=== PATIENT | male | born 1960 | race Caucasian/White ===

== ENCOUNTER 2018-10-23 00:10 | Inpatient (IN) ==
[2018-10-23] MEDS ORDERED: Ketorolac 30 MG/ML VIAL IVP ONE (00:28)
[2018-10-23] MEDS ORDERED: *HR* HYDROmorphone (PF) 1 MG/ML SYRINGE IVP ONE (00:29)
[2018-10-23] MEDS ORDERED: 0.9 % Sodium Chloride w KCl 40 MEQ/1,000 ML MLS IVC SCH (00:30)
[2018-10-23] MEDS ORDERED: Naloxone 0.4 MG/ML INJ IVP PRN (00:33)
--- NOTE | 2018-10-23 00:46 | Internal Med History&Physical ---
Date of Encounter: 10/23/18 Time of Encounter: 00:45 Internal Medicine - H&P: HPI Chief complaint: abdominal pain Admitted From: Hospital to Hospital Transfer Plans for Post Hospital Care: Home History of present illness: Ignacio Parker is a 58-year-old obese man with hypertension, hyperlipidemia and coronary artery disease with stents who went to [facility] emergency room after developing intense abdominal pain and distention right after dinner. He localizes the pain to his epigastrium and says it radiates laterally to both sides going into his back accompanied by nausea and profuse vomiting. Over the re he was found to have a lipase greater than [address] scan findings correlating with acute uncomplicated pancreatitis. He is sent here for further care. He denies alcohol and illicit drug use. Vitals: Reviewed General: Obese white male lying in bed in notable discomfort. Skin: Warm and dry. HEENT: Moist mucous membranes. No conjunctivae pallor. Neck: No lymphadenopathy. No JVD. No carotid bruits. No palpable thyroid. Chest: Normal thoracic expansion. Normal breath sounds. Clear to auscultation. Heart: Normal S1 & S2; rhythmic. No rubs or murmurs. Abdomen: Distended, soft and mildly tender to palpation in the epigastrium. No peritoneal reaction. Extremities: No clubbing, cyanosis or edema. No calf tenderness. Normal distal pulses. Neurological: Awake, alert and oriented to person, place and time. No focal deficits. Psych: Affect appropriate. Assessment/Plan 1. Acute uncomplicated pancreatitis: No clinical jaundice or other signs of biliary disease. CT showed no ductal dilation and his bilirubin is within normal limits. He has a slight elevation in AST which may be related to hepatosteatosis. Will check a lipid panel to assess his triglycerides. If alcohol and biliary disease are not etiologies, it is possible to consider drug- induced or idiopathic? Unclear. Will keep NPO, aggressive fluid resuscitation, check and supplement electrolytes, advance diet as tolerated. 2. CAD: Continue antiplatelet therapy. 3. HLD: On statin. 4. HTN: Will resume home medications once reconciled. 5. Obesity: Counseled and educated on therapeutic lifestyle changes for weight loss as it will be of benefit in controlling comorbidities. 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 Past Med Surg Social Fam HX - Past Medical History Medical history: hypertension, kidney stones, myocardial infarction Additional medical history: Gout Psychiatric history: no psych history - Past Surgical History Surgical History: other - Social History Smoking Status: Never smoker Smokeless Tobacco Status: No Alcohol use: none Drug use: none Internal Medicine - H&P: Meds Lisinopril [Zestril] 20 mg PO DAILY 03/22/15 [History] Allopurinol [Zyloprim 100 MG] 100 mg PO DAILY 10/22/18 [History] Aspirin [Lo-Dose Aspirin EC] 81 mg PO DAILY 10/22/18 [History] Atorvastatin [Lipitor] 80 mg PO HS 10/22/18 [History] Metoprolol [Lopressor] 50 mg PO DAILY 10/22/18 [History] Tamsulosin HCl [Flomax] 0.4 mg PO HS 10/22/18 [History] hydroCHLOROthiazide [Hydrochlorothiazide] 25 mg PO DAILY 10/22/18 [History] Allergy/AdvReac Type Severity Reaction Status Date / Time Penicillins Allergy Hives Verified 10/22/18 19:33 All Systems PM: A 10-system review of systems was performed and is negative for pertinent findings except as documented above in the HPI. Family history reviewed and found non-contributory. - Constitutional Exam: . - Time Spent With Patient Total time spent is greater than 50% in coordination of care (as documented) at patient's floor/unit and/or counseling patient: Greater than 35 minutes
[2018-10-23] MEDS: OXYCODONE Oral CONC 10 MG/0.5 ML ORAL.SYG SL PRN ×5 (03:38→23:24)
[2018-10-23] MEDS ORDERED: Ondansetron 4 MG/2 ML VIAL IVP PRN (04:41)
[2018-10-23] MEDS ORDERED: Ringers Solution, Lactated 1,000 ML IVC SCH (05:00)
[2018-10-23 05:33] LABS: Albumin/Globulin Ratio 1.4 (1.1-2.2); Bilirubin,Direct 0.2 mg/dL (0.0-0.2); Bilirubin,Indirect 0.5 mg/dL (0.0-1.2); Bilirubin,Total 0.7 mg/dL (0.3-1.0); Chol/HDL Ratio 3.7 (0-4.9); Globulin 2.8 g/dL (2.4-3.5); Total Protein 6.8 g/dL (6.4-8.9)
[2018-10-23 05:35] LABS: BUN/Creatinine Ratio 17 (6-26); Blood Urea Nitrogen 24 mg/dL (6-20); Calcium 9.5 mg/dL (8.6-10.3); Carbon Dioxide 25 mEq/L (23-29); Chloride 105 mEq/L (98-107); Glucose 198 mg/dL (70-105); Magnesium 1.8 mg/dL (1.6-2.6); Osmolality,Calculated 304 (280-300); Potassium 4.7 mEq/L (3.5-5.1); Sodium 142 mEq/L (136-145); eGFR For African Americans > 60 (> 60); eGFR For Non-African Americans 53 (> 60)
[2018-10-23] MEDS: *HR* Heparin 5,000 UNIT/ML VIAL SQ SCH ×2 (05:57→17:52)
[2018-10-23] MEDS: *HR* Nalbuphine 10 MG/ML AMPUL IV PRN (06:24)
[2018-10-23] MEDS ORDERED: *HR* HYDROmorphone 2 MG/ML SYRINGE IVP ONE (09:30)
[2018-10-23] MEDS ORDERED: *HR* HYDROmorphone (PF) 1 MG/ML SYRINGE IVP PRN (09:31)
[2018-10-23] MEDS ORDERED: Sennosides 8.6 MG TABLET PO PRN (09:33)
--- NOTE | 2018-10-23 09:38 | Event Note ---
Date of Encounter: 10/23/18 Time of Encounter: 09:34 Patient was admitted earlier today for acute pancreatitis lipase >1800, CT scan showed uncomplicated pnacreatitis. He is complaining abdominal pain bandlike 10 out of 10 nothing is working for him he has severe nausea and abdominal tenderness. I discussed was pain management will start IV Dilaudid at this point he is nothing by mouth unable to keep anything down. 1. Acute uncomplicated pancreatitis: No clinical jaundice or other signs of biliary disease. CT showed no ductal dilation and his bilirubin is within normal limits. He has a slight elevation in AST which may be related to hepatosteatosis. IVF at 200 ml, pain control with IV dilaudid 2. CAD: Continue antiplatelet therapy. 3. HLD: On statin. 4. HTN: Will resume home medications metoprolol, lisinopril 5. Morbid Obesity: Counseled and educated on therapeutic lifestyle changes for weight loss as it will be of benefit in controlling comorbidities. 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 6. ARF, on IVF, follow up lab Am.
[2018-10-23] MEDS ORDERED: *HR* FentaNYL (PF) 100 MCG/2 ML VIAL IVP PRN (10:49)
[2018-10-23] MEDS: Aspirin Enteric Coated 81 MG Tablet PO SCH (11:30)
[2018-10-23] MEDS: Lisinopril 20 MG TABLET PO SCH (11:30)
[2018-10-23] MEDS: Metoprolol XL (24 HR) Succ 50 MG TAB.ER.24H PO SCH (11:30)
[2018-10-23] MEDS: *HR* FentaNYL (PF) 100 MCG/2 ML VIAL IVP PRN ×2 (15:30→19:54)
[2018-10-24] MEDS: *HR* FentaNYL (PF) 100 MCG/2 ML VIAL IVP PRN (03:43)
[2018-10-24] MEDS: *HR* Heparin 5,000 UNIT/ML VIAL SQ SCH ×2 (03:53→17:43)
[2018-10-24] MEDS: OXYCODONE Oral CONC 10 MG/0.5 ML ORAL.SYG SL PRN ×3 (06:18→20:04)
[2018-10-24 09:08] LABS: Basophils % 0.2 %; Hematocrit 52.4 % (37.5-50.1); Hemoglobin 16.5 g/dL (12.9-16.9); Immature Granulocytes % 0.6 % (0-4); Lymphocytes # 1.6 K/mcL (0.6-4.6); Lymphocytes % 6.7 %; Mean Corpuscular HGB Conc 31.5 g/dL (31.6-35.5); Mean Corpuscular Hemoglobin 28.4 pg (28.0-33.3); Mean Platelet Volume 10.8 fL (9.4-12.4); Monocytes # 1.7 K/mcL (0.0-1.3); Monocytes % 7.4 %; Neutrophils # 19.9 K/mcL (1.6-8.9); Platelet Count 243 K/mcL (140-400); Red Blood Count 5.82 M/mcL (4.19-5.50); Red Cell Distribution Width 14.5 % (11.5-14.5); Segmented Neutrophils % 85.1 %; White Blood Count 23.4 K/mcL (4.3-11.1)
[2018-10-24 09:09] LABS: Basophils # 0.1 K/mcL (0.0-0.2)
[2018-10-24] MEDS: Aspirin Enteric Coated 81 MG Tablet PO SCH (09:19)
[2018-10-24] MEDS: Metoprolol XL (24 HR) Succ 50 MG TAB.ER.24H PO SCH (09:19)
[2018-10-24] MEDS: Lisinopril 20 MG TABLET PO SCH (09:19)
[2018-10-24 09:41] LABS: Albumin 3.8 g/dL (3.5-5.7); Albumin/Globulin Ratio 1.4 (1.1-2.2); Bilirubin,Direct 0.6 mg/dL (0.0-0.2); Bilirubin,Indirect 1.4 mg/dL (0.0-1.2); Chol/HDL Ratio 2.8 (0-4.9); Globulin 2.8 g/dL (2.4-3.5); Magnesium 1.9 mg/dL (1.6-2.6); Potassium 4.5 mEq/L (3.5-5.1); Total Protein 6.6 g/dL (6.4-8.9)
--- NOTE | 2018-10-24 11:13 | Internal Med Progress Note ---
Hospitalist Progress Note - Encounter Date of Encounter: 10/24/18 Time of Encounter: 11:08 - Subjective Interval History: Patient is doing much better, pain improved down to 5 out of 10, denies nausea vomiting. Blood pressure also improved. He is tolerating to ice chips will keep nothing by mouth for another day. - Exam Vitals: Temp Pulse Resp BP Pulse Ox 99.4 F 115 16 133/90 90 10/24/18 07:53 10/24/18 07:53 10/24/18 07:53 10/24/18 07:53 10/24/18 07:53 Exam: CONSTITUTIONAL: patient appears as an age appropriate male in no acute distress. EYES Clear sclerae, bilateral pupils are equal, reactive to light. EMOI. RESPIRATORY: No accessory muscle use, bilateral clear to auscultation, no wheezing, no crackles/rales. CARDIOVASCULAR: Regular heart rate, normal S1 and S2, no murmurs GASTROINTESTINAL: bowel sounds present, soft, mild tenderness. MUSCULOSKELETAL: Joints in normal range of motion, no clubbing, no edema, no cyanosis. Bilateral peripheral pulses 2+. NEUROLOGIC: CN II to XII are grossly intact, no focal neurological deficit. DVT Prophylaxis: Heparin subcutaneous - Summary of Assessment and Plan Summary of Assessment and Plan: Patient was admitted on 10/23 for acute pancreatitis, lipase >1800, CT scan showed uncomplicated pnacreatitis. Patient is doing much better today, nausea vomiting resolved. Abdominal pain is 4out of 10, aching constant. He has no BM since admission. 1Acute uncomplicated pancreatitis: No clinical jaundice or other signs of biliary disease. CT showed no ductal dilation and his bilirubin is within normal limits. He has a slight elevation in AST which may be related to hepatosteatosis. lipase improved, but Cr and WBC elevated, will conitnue iVF at 200 ml, pain controleld with fentanyl and oxycodone 2.CAD: Continue antiplatelet therapy. 3.HLD: On statin. 4.HTN: conitnue home medications metoprolol, lisinopril 5Morbid Obesity: Counseled and educated on therapeutic lifestyle changes for weight loss as it will be of benefit in controlling comorbidities. Curam Developer evaluation advised. 6. ARF, on IVF, Cr is up, IVF was d/tomasz last night, will restart at 200 ml 7. leukocytosis, will Keep NPO, follow up Am If Lab wbc improves, may start clear tomorrow. - Time Spent with Patient Total time spent is greater than 50% in coordination of care (as documented) at patient's floor/unit and/or counseling patient: less than 15 minutes Plan of Care Discussed with: patient Internal Medicine: Result - Labs CBC & Chem 7: 10/24/18 08:37 10/24/18 08:37 Labs: Short CBC 10/24/18 Range/Units 08:37 WBC 23.4 H D (4.3-11.1) K/mcL Hgb 16.5 (12.9-16.9) g/dL Hct 52.4 H (37.5-50.1) % Plt Count 243 (140-400) K/mcL Neutrophils # 19.9 H (1.6-8.9) K/mcL BMP 10/24/18 08:37 Sodium 142 Potassium 4.5 Chloride 102 Carbon Dioxide 29 BUN 34 H Creatinine 1.46 H Glucose 135 H Calcium 9.0 Liver Function 10/24/18 Range/Units 08:37 Total Bilirubin 2.0 H (0.3-1.0) mg/dL Direct Bilirubin 0.6 H (0.0-0.2) mg/dL AST 44 H (13-39) Units/L ALT 62 H (7-52) Units/L Alkaline Phosphatase 78 (34-104) Units/L Albumin 3.8 (3.5-5.7) g/dL Consult Discharge Plan - Plan Referrals: NONE,PCP [Primary Care Provider] -
[2018-10-24] MEDS ORDERED: RINGERS LACTATED IVC SCH (11:15)
[2018-10-24] MEDS: Ringers Solution, Lactated 1,000 ML IVC SCH ×3 (15:42→21:06)
[2018-10-25] MEDS: OXYCODONE Oral CONC 10 MG/0.5 ML ORAL.SYG SL PRN ×3 (02:16→23:09)
[2018-10-25] MEDS: Ringers Solution, Lactated 1,000 ML IVC SCH ×2 (02:18→08:00)
[2018-10-25] MEDS: *HR* Heparin 5,000 UNIT/ML VIAL SQ SCH ×2 (05:45→18:04)
[2018-10-25 07:06] LABS: Basophils % 0.1 %; Hematocrit 43.6 % (37.5-50.1); Immature Granulocytes % 0.7 % (0-4); Lymphocytes # 1.1 K/mcL (0.6-4.6); Lymphocytes % 7.6 %; Mean Corpuscular HGB Conc 31.9 g/dL (31.6-35.5); Mean Corpuscular Hemoglobin 28.9 pg (28.0-33.3); Mean Corpuscular Volume 90.6 fL (83.0-100.0); Mean Platelet Volume 10.5 fL (9.4-12.4); Monocytes % 6.8 %; Platelet Count 161 K/mcL (140-400); Red Blood Count 4.81 M/mcL (4.19-5.50); Red Cell Distribution Width 14.4 % (11.5-14.5); Segmented Neutrophils % 84.8 %; White Blood Count 14.1 K/mcL (4.3-11.1)
[2018-10-25 07:10] LABS: Hemoglobin 13.9 g/dL (12.9-16.9)
[2018-10-25 07:25] LABS: Platelet Estimate Normal (Normal)
[2018-10-25 07:28] LABS: Alanine Aminotransferase 39 Units/L (7-52); Albumin 3.3 g/dL (3.5-5.7); Albumin/Globulin Ratio 1.3 (1.1-2.2); Alkaline Phosphatase 72 Units/L (34-104); Aspartate Amino Transferase 32 Units/L (13-39); BUN/Creatinine Ratio 27 (6-26); Bilirubin,Indirect 1.5 mg/dL (0.0-1.2); Bilirubin,Total 2.5 mg/dL (0.3-1.0); Blood Urea Nitrogen 36 mg/dL (6-20); Calcium 8.4 mg/dL (8.6-10.3); Carbon Dioxide 30 mEq/L (23-29); Chloride 98 mEq/L (98-107); Globulin 2.6 g/dL (2.4-3.5); Glucose 138 mg/dL (70-105); Lipase 285 Units/L (11-82); Osmolality,Calculated 297 (280-300); Potassium 3.8 mEq/L (3.5-5.1); Sodium 138 mEq/L (136-145); Total Protein 5.9 g/dL (6.4-8.9); eGFR For African Americans > 60 (> 60); eGFR For Non-African Americans 55 (> 60)
[2018-10-25] MEDS: Metoprolol XL (24 HR) Succ 50 MG TAB.ER.24H PO SCH (09:54)
[2018-10-25] MEDS: Lisinopril 20 MG TABLET PO SCH (09:54)
[2018-10-25] MEDS: Aspirin Enteric Coated 81 MG Tablet PO SCH (09:54)
[2018-10-25] MEDS ORDERED: Acetaminophen 325 MG TABLET PO PRN (10:36)
--- NOTE | 2018-10-25 14:13 | Internal Med Progress Note ---
Hospitalist Progress Note - Encounter Date of Encounter: 10/25/18 Time of Encounter: 14:11 - Subjective Interval History: Seen and examined at bedside. Patient is new to me, information obtained from chart review and patient report. Overall says he feels better still having some mild abdominal discomfort. Says abdomen is more distended and bloated than normal. at bedside and updated - Exam Vitals: Temp Pulse Resp BP Pulse Ox 98.9 F 109 18 155/90 91 10/25/18 11:29 10/25/18 11:29 10/25/18 11:29 10/25/18 11:29 10/25/18 11:29 Exam: CONSTITUTIONAL: patient appears as an age appropriate male in no acute distress. EYES Clear sclerae, bilateral pupils are equal, reactive to light. EMOI. RESPIRATORY: No accessory muscle use, bilateral clear to auscultation, no wheezing, no crackles/rales. CARDIOVASCULAR: Regular heart rate, normal S1 and S2, no murmurs GASTROINTESTINAL: bowel sounds hypoactive, soft, mild tenderness. MUSCULOSKELETAL: Joints in normal range of motion, no clubbing, no edema, no cyanosis. Bilateral peripheral pulses 2+. NEUROLOGIC: CN II to XII are grossly intact, no focal neurological deficit. - Assessment and Plan (1) Pancreatitis Current Visit: No Status: Acute Assessment and Plan: presented with ABD pain. ABD CT showed acute non-complicated pancreatitis. With mild ABV pain but overall improved. Advance diet to clear liquid. Stop IV fluids. Repeat ABD CT with abdominal distention (2) ERIN (acute kidney injury) Current Visit: Yes Status: Acute Assessment and Plan: Cr 1.3; baseline normal. Suspect prerenal with pancreatitis. Treated with IV fluids. Monitor repeat BMP (3) Leukocytosis Current Visit: Yes Status: Acute Assessment and Plan: WBC 23K. secondary to acute pancreatitis. Repeat to WBC trending down. (4) Elevated bilirubin Current Visit: Yes Status: Acute Assessment and Plan: in the setting of acute pancreatitis. Repeat ABD/pelvis CT pending (5) HTN (hypertension) Current Visit: Yes Status: Acute Assessment and Plan: per hx. Cont home BP medications. Monitor BP and titrate PRN - Time Spent with Patient Total time spent is greater than 50% in coordination of care (as documented) at patient's floor/unit and/or counseling patient: Internal Medicine: Result - Labs CBC & Chem 7: 10/25/18 06:33 10/25/18 06:33 Labs: Short CBC 10/25/18 Range/Units 06:33 WBC 14.1 H (4.3-11.1) K/mcL Hgb 13.9 D (12.9-16.9) g/dL Hct 43.6 (37.5-50.1) % Plt Count 161 (140-400) K/mcL Neutrophils # 12.0 H (1.6-8.9) K/mcL BMP 10/25/18 06:33 Sodium 138 Potassium 3.8 Chloride 98 Carbon Dioxide 30 H BUN 36 H Creatinine 1.34 H Glucose 138 H Calcium 8.4 L Liver Function 10/25/18 Range/Units 06:33 Total Bilirubin 2.5 H (0.3-1.0) mg/dL Direct Bilirubin 1.0 H (0.0-0.2) mg/dL AST 32 (13-39) Units/L ALT 39 (7-52) Units/L Alkaline Phosphatase 72 (34-104) Units/L Albumin 3.3 L (3.5-5.7) g/dL Consult Discharge Plan - Plan Referrals: NONE,PCP [Primary Care Provider] - (1) Pancreatitis Qualifiers: Chronicity: acute Pancreatitis type: unspecified pancreatitis type Acute pa ncreatitis complication: no infection or necrosis Qualified Code(s): K85.90 - Acute pancreatitis without necrosis or infection, unspecified
[2018-10-25] MEDS ORDERED: 0.9 % Sodium Chloride 1,000 ML ONE (18:59)
[2018-10-25] MEDS: 0.9 % Sodium Chloride 1,000 ML IVC SCH (19:12)
[2018-10-25] MEDS: *HR* Nalbuphine 10 MG/ML AMPUL IV PRN (20:05)
[2018-10-25 20:17] LABS: Hematocrit 41.6 % (37.5-50.1); Hemoglobin 13.5 g/dL (12.9-16.9)
[2018-10-26] MEDS: *HR* FentaNYL (PF) 100 MCG/2 ML VIAL IVP PRN ×3 (04:24→22:07)
[2018-10-26] MEDS: *HR* Heparin 5,000 UNIT/ML VIAL SQ SCH ×2 (05:14→14:51)
[2018-10-26] MEDS: 0.9 % Sodium Chloride 1,000 ML IVC SCH ×2 (09:06→22:11)
[2018-10-26] MEDS: Aspirin Enteric Coated 81 MG Tablet PO SCH (09:14)
[2018-10-26] MEDS: Metoprolol XL (24 HR) Succ 50 MG TAB.ER.24H PO SCH (09:14)
[2018-10-26] MEDS: Lisinopril 20 MG TABLET PO SCH (09:14)
[2018-10-26] MEDS: Levofloxacin 750 MG/150 ML 750 MG/150 ML BAG IVPB SCH (09:16)
[2018-10-26] MEDS: OXYCODONE Oral CONC 10 MG/0.5 ML ORAL.SYG SL PRN ×2 (09:22→16:53)
[2018-10-26 09:48] LABS: Hematocrit 41.2 % (37.5-50.1); Hemoglobin 13.3 g/dL (12.9-16.9); Mean Corpuscular HGB Conc 32.3 g/dL (31.6-35.5); Mean Corpuscular Hemoglobin 28.5 pg (28.0-33.3); Mean Corpuscular Volume 88.2 fL (83.0-100.0); Mean Platelet Volume 10.8 fL (9.4-12.4); Platelet Count 173 K/mcL (140-400); Red Blood Count 4.67 M/mcL (4.19-5.50); White Blood Count 10.1 K/mcL (4.3-11.1)
[2018-10-26 10:08] LABS: Alanine Aminotransferase 36 Units/L (7-52); Albumin 3.2 g/dL (3.5-5.7); Albumin/Globulin Ratio 1.1 (1.1-2.2); Alkaline Phosphatase 80 Units/L (34-104); Aspartate Amino Transferase 33 Units/L (13-39); BUN/Creatinine Ratio 22 (6-26); Bilirubin,Total 3.7 mg/dL (0.3-1.0); Blood Urea Nitrogen 24 mg/dL (6-20); Calcium 8.5 mg/dL (8.6-10.3); Carbon Dioxide 30 mEq/L (23-29); Chloride 100 mEq/L (98-107); Globulin 2.9 g/dL (2.4-3.5); Glucose 129 mg/dL (70-105); Osmolality,Calculated 292 (280-300); Potassium 3.5 mEq/L (3.5-5.1); Sodium 138 mEq/L (136-145); Total Protein 6.1 g/dL (6.4-8.9); eGFR For African Americans > 60 (> 60); eGFR For Non-African Americans > 60 (> 60)
--- NOTE | 2018-10-26 14:30 | AcuteCare Surgery Consult Note ---
Date of Encounter: 10/26/18 Time of Encounter: 14:26 Assessment and Plan (1) Pancreatitis Current Visit: Yes Status: Acute 58M with complications of cholelithiasis including gallstone pancreatitis progressing to hemorraghic pancreatitis as well as likely choledocholithiasis; HDS NPO IVF trend t bili GI consult for ERCP on 10/27 MRCP today to confirm obstruction, but will still likely need ERCP if T bili continues to remain elevated pain control per primary team will plan for surgical intervention after evaluation by GI and resolution of pain from pancreatitis Qualifiers: Chronicity: acute Pancreatitis type: biliary Acute pancreatitis complication: no infection or necrosis Qualified Code(s): K85.10 - Biliary acute pancreatitis without necrosis or infection History of Present Illness Consult date: 10/26/18 Reason for consult: abdominal pain History of present illness: 58M PMH significant for obesity, CAD/DC who presents with a diagnosis of acute pancreatitis. The patient states he experienced upper abdominal pain with radiation to the back. The pain was associated with nausea, no vomiting, but did report decrease PO tolerance. He has never had surgery in his abdomen before. No reports of fevers, chills, nor shortness of breath. A CT scan was obtained, which was reviewed and intepreted by me, which demonstrated fat stranding around the pancreas consistent with acute pancreatitis. His alan score on admission was 2, at 48hrs it was at 4. A repeat CT scan was obtained which demonstrated findings concerning for intraperitoneal bleeding/hemorrhagic pancreatitis (no obvious aneurysm was identified and patient is hemodynamically stable). His total bilirubin continues to increase, it was at 2.5 on 10/25 and now it is at 3.7. General surgery was consulted for management recommendations. Past Med Surg Social Fam HX - Past Medical History Medical history: hypertension, kidney stones, myocardial infarction Additional medical history: Gout Psychiatric history: no psych history - Past Surgical History Surgical History: other - Social History Smoking Status: Never smoker Smokeless Tobacco Status: No Alcohol use: none Drug use: none - Additional Family History Additional family history: non contributory Medications and Allergies Lisinopril [Zestril] 20 mg PO DAILY 03/22/15 [History] Allopurinol [Zyloprim 100 MG] 100 mg PO HS 10/22/18 [History] Aspirin [Lo-Dose Aspirin EC] 81 mg PO DAILY 10/22/18 [History] Atorvastatin [Lipitor] 80 mg PO HS 10/22/18 [History] Tamsulosin HCl [Flomax] 0.4 mg PO DAILY 10/22/18 [History] hydroCHLOROthiazide [Hydrochlorothiazide] 25 mg PO DAILY 10/22/18 [History] Metoprolol Succinate [Toprol Xl] 50 mg PO DAILY 10/23/18 [History] Allergy/AdvReac Type Severity Reaction Status Date / Time Penicillins Allergy Hives Verified 10/23/18 16:28 Review of Systems All systems PM: 12 point ROS negative besides HPI findings General Surgery Exam Initial Vital Signs Temp Pulse Resp BP Pulse Ox 97.4 F L 65 17 171/96 94 10/23/18 00:44 10/23/18 00:44 10/23/18 00:44 10/23/18 00:44 10/23/18 00:44 - General physical appearance no distress - Eyes PERRL, normal ocular movement - ENT normocephalic - Neck trachea midline, no lymphadectomy - Respiratory normal expansion, normal respiratory effort - Cardiovascular Cardiovascular exam: Present: RRR - Abdomen Abdomen general surgery: Present: soft, tender (non peritoneal; no evidence of jean's nor handley tavares's sign) - Integumentary Integumentary general surgery: Present: warm and dry, no abnormal pigmentation - Neurologic Present: CN 2-12 grossly intact - Musculoskeletal Present: normal posture - Psychiatric Psychiatric general surgery: Present: A&Ox3 Exam Initial Vital Signs Temp Pulse Resp BP Pulse Ox 97.4 F L 65 17 171/96 94 10/23/18 00:44 10/23/18 00:44 10/23/18 00:44 10/23/18 00:44 10/23/18 00:44 Results - Labs 10/26/18 09:13 10/26/18 09:13 Abnormal lab results WBC 14.1 K/mcL (4.3-11.1) H 10/25/18 06:33 RBC 5.82 M/mcL (4.19-5.50) H 10/24/18 08:37 Hct 52.4 % (37.5-50.1) H 10/24/18 08:37 MCHC 31.5 g/dL (31.6-35.5) L 10/24/18 08:37 12.0 K/mcL (1.6-8.9) H 10/25/18 06:33 1.7 K/mcL (0.0-1.3) H 10/24/18 08:37 Carbon Dioxide 30 mEq/L (23-29) H 10/26/18 09:13 BUN 24 mg/dL (6-20) H 10/26/18 09:13 1.34 mg/dL (0.70-1.30) H 10/25/18 06:33 Est GFR (Non-Af Amer) 55 (> 60) L 10/25/18 06:33 27 (6-26) H 10/25/18 06:33 Glucose 129 mg/dL (70-105) H 10/26/18 09:13 304 (280-300) H 10/24/18 08:37 Calcium 8.5 mg/dL (8.6-10.3) L 10/26/18 09:13 3.7 mg/dL (0.3-1.0) H 10/26/18 09:13 1.0 mg/dL (0.0-0.2) H 10/25/18 06:33 1.5 mg/dL (0.0-1.2) H 10/25/18 06:33 AST 44 Units/L (13-39) H 10/24/18 08:37 ALT 62 Units/L (7-52) H 10/24/18 08:37 6.1 g/dL (6.4-8.9) L 10/26/18 09:13 3.2 g/dL (3.5-5.7) L 10/26/18 09:13 35 mg/dL (40-59) L 10/23/18 04:38 285 Units/L (11-82) H 10/25/18 06:33 Diabetes panel 10/26/18 Range/Units 09:13 Sodium 138 (136-145) mEq/L Potassium 3.5 (3.5-5.1) mEq/L Chloride 100 (98-107) mEq/L Carbon Dioxide 30 H (23-29) mEq/L BUN 24 H (6-20) mg/dL Creatinine 1.09 (0.70-1.30) mg/dL Glucose 129 H (70-105) mg/dL Calcium 8.5 L (8.6-10.3) mg/dL AST 33 (13-39) Units/L ALT 36 (7-52) Units/L Alkaline Phosphatase 80 (34-104) Units/L Albumin 3.2 L (3.5-5.7) g/dL Calcium panel 10/26/18 Range/Units 09:13 Calcium 8.5 L (8.6-10.3) mg/dL Albumin 3.2 L (3.5-5.7) g/dL Pituitary panel 10/26/18 Range/Units 09:13 Sodium 138 (136-145) mEq/L Potassium 3.5 (3.5-5.1) mEq/L Chloride 100 (98-107) mEq/L Carbon Dioxide 30 H (23-29) mEq/L BUN 24 H (6-20) mg/dL Creatinine 1.09 (0.70-1.30) mg/dL Glucose 129 H (70-105) mg/dL Calcium 8.5 L (8.6-10.3) mg/dL Adrenal panel 10/26/18 Range/Units 09:13 Sodium 138 (136-145) mEq/L Potassium 3.5 (3.5-5.1) mEq/L Chloride 100 (98-107) mEq/L Carbon Dioxide 30 H (23-29) mEq/L BUN 24 H (6-20) mg/dL Creatinine 1.09 (0.70-1.30) mg/dL Glucose 129 H (70-105) mg/dL Calcium 8.5 L (8.6-10.3) mg/dL Total Bilirubin 3.7 H (0.3-1.0) mg/dL AST 33 (13-39) Units/L ALT 36 (7-52) Units/L Alkaline Phosphatase 80 (34-104) Units/L Albumin 3.2 L (3.5-5.7) g/dL All other labs normal. - Imaging CT scan - abdomen: report reviewed, image reviewed CT scan - pelvis: report reviewed, image reviewed Consult Discharge Plan - Plan Referrals: NONE,PCP [Primary Care Provider] -
--- NOTE | 2018-10-26 16:44 | Internal Med Progress Note ---
Hospitalist Progress Note - Encounter Date of Encounter: 10/26/18 Time of Encounter: 16:42 - Exam Vitals: Temp Pulse Resp BP Pulse Ox 98.5 F 95 20 146/89 95 10/26/18 15:31 10/26/18 15:31 10/26/18 15:31 10/26/18 15:31 10/26/18 15:31 Exam: CONSTITUTIONAL: patient appears as an age appropriate male in no acute distress. EYES Clear sclerae, bilateral pupils are equal, reactive to light. EMOI. RESPIRATORY: No accessory muscle use, bilateral clear to auscultation, no wheezing, no crackles/rales. CARDIOVASCULAR: Regular heart rate, normal S1 and S2, no murmurs GASTROINTESTINAL: bowel sounds hypoactive, firm, distended, mild tenderness. MUSCULOSKELETAL: Joints in normal range of motion, no clubbing, no edema, no cyanosis. Bilateral peripheral pulses 2+. NEUROLOGIC: CN II to XII are grossly intact, no focal neurological deficit. - Assessment and Plan (1) Pancreatitis Current Visit: Yes Status: Acute Assessment and Plan: presented with ABD pain. ABD CT showed acute non-complicated pancreatitis. Repeat ABD CT on 10/25/18 for persistent abdominal pain and distention showed hemorrhagic pancreatitis. Evaluated by Gen. surgery who noted cholelithiasis with gallstone pancreatitis progressing to hemorrhagic parotitis as well as likely choledocholithiasis. NPO, IVF. Trend Bilirubin. MRCP pending. Consult GI for ERCP. General surgery planing surgical intervention after evaluation by GI and resolution of pain from pancreatitis (2) Elevated bilirubin Current Visit: Yes Status: Acute Assessment and Plan: in the setting of acute pancreatitis. Trend bilirubin. Plan as noted above (3) Pneumonia Current Visit: Yes Status: Acute Assessment and Plan: Incidental finding. ABD/pelvis CT concerning for bilateral lobe pneumonia. Continue IV Levaquin. Urinary antigens pending (4) Pericardial effusion Current Visit: Yes Status: Acute Assessment and Plan: Incidental finding on ABD/pelvis CT. Echocardiogram showed small pericardial effusion without evidence of tamponade. Consult cardiology for further evaluation although do not suspect further workup would be indicated (5) ERIN (acute kidney injury) Current Visit: Yes Status: Acute Assessment and Plan: Cr 1.3; baseline normal. Suspect prerenal with pancreatitis. Treated with IV fluids. Monitor repeat BMP (6) Leukocytosis Current Visit: Yes Status: Acute Assessment and Plan: WBC 23K. secondary to acute pancreatitis. Repeat to WBC trending down. (7) HTN (hypertension) Current Visit: Yes Status: Acute Assessment and Plan: per hx. BP mildly elevated at times. Suspect component of pain may be contributing to elevated BP. Cont home BP medications. Monitor BP and titrate PRN - Time Spent with Patient Total time spent is greater than 50% in coordination of care (as documented) at patient's floor/unit and/or counseling patient: Internal Medicine: Result - Labs CBC & Chem 7: 10/26/18 09:13 10/26/18 09:13 Labs: Short CBC 10/25/18 10/26/18 Range/Units 19:23 09:13 WBC 10.1 (4.3-11.1) K/mcL Hgb 13.5 13.3 (12.9-16.9) g/dL Hct 41.6 41.2 (37.5-50.1) % Plt Count 173 (140-400) K/mcL BMP 10/26/18 09:13 Sodium 138 Potassium 3.5 Chloride 100 Carbon Dioxide 30 H BUN 24 H Creatinine 1.09 Glucose 129 H Calcium 8.5 L Liver Function 10/26/18 Range/Units 09:13 Total Bilirubin 3.7 H (0.3-1.0) mg/dL AST 33 (13-39) Units/L ALT 36 (7-52) Units/L Alkaline Phosphatase 80 (34-104) Units/L Albumin 3.2 L (3.5-5.7) g/dL - Impressions Impressions Abdomen/Pelvis CT 10/25/18 12:57 IMPRESSION: Redemonstration of acute pancreatitis. When compared to the previous exam, there is increased surrounding fat stranding, much of which appears hyperdense, with a more focal collection of hyperdense material seen superior to the pancreas. Findings are concerning for hemorrhagic pancreatitis. Small bilateral pleural effusions. Patchy consolidation within the lower lungs bilaterally, concerning for pneumonia versus atelectasis. Development of a small pericardial effusion. D/ / Kuldeep Barkley MD / Kuldeep Barkley MD Interpreting Provider: Kuldeep Barkley MD Echocardiogram 10/26/18 09:12 Impressions: LVEF 60%. Normal LV chamber size, wall thickness and function. Normal left ventricular diastolic function. Normal right ventricular structure and function. There is a small pericardial effusion present without echocardiographic evidence of tamponade Mild tricuspid regurgitation. Unable to estimate RVSP as subcostal images were not obtained. Left Ventricular Wall Motion: Rest Echo Findings All wall segments showed normal motion. Findings: Study Quality * Technically sub-optimal due to poor echocardiographic windows. ECG Findings * Sinus tachycardia. Left Ventricle * LVEF 60%. * Normal LV chamber size, wall thickness and function. * Normal left ventricular diastolic function. Right Ventricle * Normal right ventricular structure and function. Left Atrium * Normal left atrial size. Right Atrium * Normal right atrial size. Aortic Valve * Aortic valve not well visualized. * No aortic regurgitation. * No aortic stenosis. Mitral Valve * Normal mitral valve structure. * No mitral stenosis. * No mitral regurgitation. Tricuspid Valve * Tricuspid valve not well visualized. * No tricuspid stenosis. * No evidence of pulmonary hypertension. * Mild tricuspid regurgitation. Pulmonic Valve * Pulmonic valve is not well visualized. Aorta * Normally sized aortic root. Pericardium * There is a small pericardial effusion present without echocardiographic evidence of tamponade * There is no echocardiographic evidence of tamponade. Blood pressure at time of study was 146/84mmHg IVC * The IVC is not well evaluated. Pulmonary Artery * Pulmonary artery not well visualized. Consult Discharge Plan - Plan Referrals: NONE,PCP [Primary Care Provider] - ___ (1) Pancreatitis Qualifiers: Chronicity: acute Pancreatitis type: biliary Acute pancreatitis complication: no infection or necrosis Qualified Code(s): K85.10 - Biliary acute pancreatitis without necrosis or infection
[2018-10-27] MEDS: OXYCODONE Oral CONC 10 MG/0.5 ML ORAL.SYG SL PRN ×4 (02:22→21:05)
[2018-10-27] MEDS: *HR* Heparin 5,000 UNIT/ML VIAL SQ SCH ×2 (07:24→16:02)
[2018-10-27] MEDS: Levofloxacin 750 MG/150 ML 750 MG/150 ML BAG IVPB SCH (08:42)
[2018-10-27] MEDS ORDERED: 0.9 % Sodium Chloride 1,000 ML IVC SCH (09:06)
[2018-10-27] MEDS ORDERED: Meropenem 1,000 MG in 0.9 % Sodium Chloride Mini Bag 100 ML IVPB SCH (09:11)
--- NOTE | 2018-10-27 09:13 | Internal Med Progress Note ---
Hospitalist Progress Note - Encounter Date of Encounter: 10/27/18 Time of Encounter: 09:09 - Subjective Interval History: patient developed low grade fever, no lab was done today, pain is 7/10 with current pain regimen, denies nausea and vomiting. I called GI they was not called yesterday, no consult was placed, I called for stat consult, check stat Lab, and change levaquin to Meropenem discussed with patient and his - Exam Vitals: Temp Pulse Resp BP Pulse Ox 99.8 F H 105 17 155/91 90 10/27/18 07:31 10/27/18 07:31 10/27/18 07:31 10/27/18 07:31 10/27/18 07:31 Exam: CONSTITUTIONAL: patient appears as an age appropriate male in no acute distress. EYES Clear sclerae, bilateral pupils are equal, reactive to light. EMOI. RESPIRATORY: No accessory muscle use, bilateral clear to auscultation, no wheezing, no crackles/rales. CARDIOVASCULAR: Regular heart rate, normal S1 and S2, no murmurs GASTROINTESTINAL: bowel sounds hypoactive, firm, distended, mild tenderness. MUSCULOSKELETAL: Joints in normal range of motion, no clubbing, no edema, no cyanosis. Bilateral peripheral pulses 2+. NEUROLOGIC: CN II to XII are grossly intact, no focal neurological deficit. DVT Prophylaxis: Heparin subcutaneous - Summary of Assessment and Plan Summary of Assessment and Plan: Patient was admitted on 10/23 for acute pancreatitis, lipase >1800, CT ([facility]) scan showed uncomplicated pnacreatitis. Repeat CT on 10/25 showed necroltizing pancreatitis. Surgery was consulted, recommended ERCP, I called GI this morning for stat consult (1) necrotizing Pancreatitis from possible gall stone Current Visit: Yes Status: Acute Assessment and Plan: presented with ABD pain. ABD CT showed acute non-complicated pancreatitis. Repeat ABD CT on 10/25/18 for persistent abdominal pain and distention showed hemorrhagic pancreatitis. Evaluated by Gen. surgery who noted cholelithiasis with gallstone pancreatitis progressing to hemorrhagic pancreatitis as well as likely choledocholithiasis. NPO, IVF. Trend Bilirubin. MRCP showed Gallbladder sludge without obvious gallstones. No intra or extrahepatic biliary dilatation. No choledocholithiasis. Pancreatic edema with adjacent free fluid and inflammatory stranding, compatible with patient's known pancreatitis. Consult GI stat for ERCP. (2) Gallstone and possible obstructive jaundice with Elevated bilirubin, GI conuslt stat for ERCP Current Visit: Yes Status: Acute Assessment and Plan: in the setting of acute pancreatitis. Trend bilirubin. Plan as noted above (3) Pneumonia from CT scan, on meropenem Current Visit: Yes Status: Acute Assessment and Plan: Incidental finding. ABD/pelvis CT concerning for bilateral lobe pneumonia. Urinary antigens pending (4) Pericardial effusion likley from necrotizing pancreatitis Current Visit: Yes Status: Acute Assessment and Plan: Incidental finding on ABD/pelvis CT. Echocardiogram showed small pericardial effusion without evidence of tamponade. (5) ERIN (acute kidney injury), improved Current Visit: Yes Status: Acute Assessment and Plan: Cr 1.3; baseline normal. Suspect prerenal with pancreatitis. Treated with IV fluids. Monitor repeat BMP (6) Leukocytosis trending down Current Visit: Yes Status: Acute Assessment and Plan: WBC 23K. secondary to acute pancreatitis. Repeat to WBC trending down. (7) HTN (hypertension) resume home meds metoprolol, lisinopril (8) Morbid obesity with BMI 45 Current Visit: Yes Status: Acute - Time Spent with Patient Total time spent is greater than 50% in coordination of care (as documented) at patient's floor/unit and/or counseling patient: Greater than 35 minutes Plan of Care Discussed with: patient Internal Medicine: Result - Labs CBC & Chem 7: 10/26/18 09:13 10/26/18 09:13 Labs: Short CBC 10/26/18 Range/Units 09:13 WBC 10.1 (4.3-11.1) K/mcL Hgb 13.3 (12.9-16.9) g/dL Hct 41.2 (37.5-50.1) % Plt Count 173 (140-400) K/mcL BMP 10/26/18 09:13 Sodium 138 Potassium 3.5 Chloride 100 Carbon Dioxide 30 H BUN 24 H Creatinine 1.09 Glucose 129 H Calcium 8.5 L Liver Function 10/26/18 Range/Units 09:13 Total Bilirubin 3.7 H (0.3-1.0) mg/dL AST 33 (13-39) Units/L ALT 36 (7-52) Units/L Alkaline Phosphatase 80 (34-104) Units/L Albumin 3.2 L (3.5-5.7) g/dL - Impressions Impressions Echocardiogram 10/26/18 09:12 Impressions: LVEF 60%. Normal LV chamber size, wall thickness and function. Normal left ventricular diastolic function. Normal right ventricular structure and function. There is a small pericardial effusion present without echocardiographic evidence of tamponade Mild tricuspid regurgitation. Unable to estimate RVSP as subcostal images were not obtained. Left Ventricular Wall Motion: Rest Echo Findings All wall segments showed normal motion. Findings: Study Quality * Technically sub-optimal due to poor echocardiographic windows. ECG Findings * Sinus tachycardia. Left Ventricle * LVEF 60%. * Normal LV chamber size, wall thickness and function. * Normal left ventricular diastolic function. Right Ventricle * Normal right ventricular structure and function. Left Atrium * Normal left atrial size. Right Atrium * Normal right atrial size. Aortic Valve * Aortic valve not well visualized. * No aortic regurgitation. * No aortic stenosis. Mitral Valve * Normal mitral valve structure. * No mitral stenosis. * No mitral regurgitation. Tricuspid Valve * Tricuspid valve not well visualized. * No tricuspid stenosis. * No evidence of pulmonary hypertension. * Mild tricuspid regurgitation. Pulmonic Valve * Pulmonic valve is not well visualized. Aorta * Normally sized aortic root. Pericardium * There is a small pericardial effusion present without echocardiographic evidence of tamponade * There is no echocardiographic evidence of tamponade. Blood pressure at time of study was 146/84mmHg IVC * The IVC is not well evaluated. Pulmonary Artery * Pulmonary artery not well visualized. Abdomen MRI 10/26/18 10:42 IMPRESSION: 1. Motion limited. 2. Gallbladder sludge without obvious gallstones. No intra or extrahepatic biliary dilatation. No choledocholithiasis. 3. Pancreatic edema with adjacent free fluid and inflammatory stranding, compatible with patient's known pancreatitis. 4. Partial visualization of basilar opacities with small effusions. D/ / 10/26/2018 17:35:28 Erinn Castellanos MD / Kimmy Davies Interpreting Provider: Erinn Castellanos MD Consult Discharge Plan - Plan Referrals: NONE,PCP [Primary Care Provider] -
[2018-10-27] MEDS ORDERED: Metoprolol XL (24 HR) Succ 50 MG TAB.ER.24H PO SCH (09:15)
--- NOTE | 2018-10-27 09:24 | AcuteCareSurgery Progress Note ---
<Alysa Prabhakar P - Last Filed: 10/27/18 11:38> Date of Encounter: 10/27/18 Time of Encounter: 08:45 - Assessment and Plan (1) Pancreatitis Current Visit: Yes Status: Acute * 58 years old male admitted for developing intense abdominal pain and distention right after dinner,accompanied by nausea and profuse vomiting. He has had Serum lipase greater than [address] scan findings correlating with acute uncomplicated pancreatitis, * MRI abdomen showed : Gallbladder sludge without obvious gallstones. No intra or extrahepatic biliary dilatation. No choledocholithiasis.Pancreatic edema with adjacent free fluid and inflammatory stranding, compatible with patient's known pancreatitis * Patient is still having abdominal pain located in epigastrium and left hypochondrium, intensity of pain is less than before * White cell count trending down from 23.4-10.1, hemoglobin 13.3, BUN trending down to 24, creatinine normal, total bilirubin trending up 3.7 ,direct bilirubin trending up 1.0, AST ALT are within normal limit and alkaline phosp hatase normal, serum lipase trending down [phone] Plan : * Medical management,watch and wait * Advance ice chips to clear liquid * Gastroenterology consultation, decide for ERCP * trend labs including LFT * Adequate pain management * DVT and GI prophylaxis/ PPI * will plan for surgical intervention after evaluation by GI and resolution of pain from pancreatitis and We will wait till 6 week before doing surgical intervention. Qualifiers: Chronicity: acute Pancreatitis type: biliary Acute pancreatitis complication: no infection or necrosis Qualified Code(s): K85.10 - Biliary acute pancreatitis without necrosis or infection Subjective Patient reports: still having pain, flatus, bowel movement, afebrile Narrative: 58 years old male admitted with a diagnosis of acute pancreatitis. He has had upper abdominal pain radiating to back, nausea and decreased oral intolerance. A CT scan was obtained aED which demonstrated fat stranding around the pancreas consistent with acute pancreatitis. Latest MRI abdomen showed : Gallbladder sludge without obvious gallstones. No intra or extrahepatic biliary dilatation. No choledocholithiasis.Pancreatic edema with adjacent free fluid and inflammatory stranding, compatible with patient's known pancreatitis. Today is first post admission day. Patient stated that his pain is much less and gradually getting better. He was under conservative management with the nothing by mouth, wait & watch. He does not have any nausea vomiting, vital signs stable, he is afebrile for 24 hours. We have planned gastroenterology consultation and probably ERCP if needed.. We will plan further surgical intervention if needed after gastroenterology consultation. We will restart with ice chips and clear liquid diet, we will wait for 6 weeks before doing surgical intervention Objective Vital Signs - Last 8 Hours Temp Pulse Resp BP Pulse Ox 10/27/18 07:31 99.8 F H 105 17 155/91 90 10/27/18 03:48 99.3 F 104 17 167/90 92 Intake and Output 10/26/18 10/27/18 10/27/18 23:59 07:59 15:59 Intake Total 1000 / 2750 Output Total 650 / 650 Balance 1000 / 850 -650 / -650 Intake: IV Fluids 1000 / 2150 0.9 % Sodium Chloride 1,000 ML 1000 / 2000 @ 75 mls/hr IVC .[id number] [facility] Rx #:[id number] Oral 0 / 600 Output: Urine 650 / 650 Other: Meal NPO - General physical appearance well developed, no distress, moderate pain - Eyes PERRL, normal ocular movement - ENT normal mucosa, no congestion - Neck Neck exam: no bruits, trachea midline, no lymphadectomy, no venous distension - Respiratory normal expansion, normal respiratory effort, clear to percussion, clear to auscultation - Cardiovascular Cardiovascular exam: Present: RRR, regular rhythm, no murmurs/rubs/gallops - Abdomen Abdomen: Present: bowel sounds present, soft, distended, tender. Absent: guarding, rigid, surgical scars Abdominal Tenderness: epigastic, LUQ Hernia: none - Integumentary no rash - Neurologic CN 2-12 grossly intact, normal coordination - Musculoskeletal normal gait, normal posture - Psychiatric oriented to time, oriented to person, oriented to place, speech is normal - Labs 10/27/18 09:18 10/27/18 09:18 Diabetes panel 10/26/18 Range/Units 09:13 Sodium 138 (136-145) mEq/L Potassium 3.5 (3.5-5.1) mEq/L Chloride 100 (98-107) mEq/L Carbon Dioxide 30 H (23-29) mEq/L BUN 24 H (6-20) mg/dL Creatinine 1.09 (0.70-1.30) mg/dL Glucose 129 H (70-105) mg/dL Calcium 8.5 L (8.6-10.3) mg/dL AST 33 (13-39) Units/L ALT 36 (7-52) Units/L Alkaline Phosphatase 80 (34-104) Units/L Albumin 3.2 L (3.5-5.7) g/dL Calcium panel 10/26/18 Range/Units 09:13 Calcium 8.5 L (8.6-10.3) mg/dL Albumin 3.2 L (3.5-5.7) g/dL Pituitary panel 10/26/18 Range/Units 09:13 Sodium 138 (136-145) mEq/L Potassium 3.5 (3.5-5.1) mEq/L Chloride 100 (98-107) mEq/L Carbon Dioxide 30 H (23-29) mEq/L BUN 24 H (6-20) mg/dL Creatinine 1.09 (0.70-1.30) mg/dL Glucose 129 H (70-105) mg/dL Calcium 8.5 L (8.6-10.3) mg/dL Adrenal panel 10/26/18 Range/Units 09:13 Sodium 138 (136-145) mEq/L Potassium 3.5 (3.5-5.1) mEq/L Chloride 100 (98-107) mEq/L Carbon Dioxide 30 H (23-29) mEq/L BUN 24 H (6-20) mg/dL Creatinine 1.09 (0.70-1.30) mg/dL Glucose 129 H (70-105) mg/dL Calcium 8.5 L (8.6-10.3) mg/dL Total Bilirubin 3.7 H (0.3-1.0) mg/dL AST 33 (13-39) Units/L ALT 36 (7-52) Units/L Alkaline Phosphatase 80 (34-104) Units/L Albumin 3.2 L (3.5-5.7) g/dL - Imaging CT scan - abdomen: report reviewed Consult Discharge Plan - Plan Referrals: NONE,PCP [Primary Care Provider] - <Yony Mazariegos - Last Filed: 10/27/18 13:18> Date of Encounter: 10/27/18 Objective Vital Signs - Last 8 Hours Temp Pulse Resp BP Pulse Ox 10/27/18 11:10 98.1 F 109 17 168/90 94 06/10/19 07:31 99.8 F H 105 17 155/91 90 Intake and Output 10/26/18 10/27/18 10/27/18 23:59 07:59 15:59 Intake Total 1000 / 2750 380 / 380 Output Total 650 / 650 Balance 1000 / 850 -270 / -270 Intake: IV Fluids 1000 / 2150 0.9 % Sodium Chloride 1,000 ML 1000 / 2000 @ 75 mls/hr IVC .[id number] [facility] Rx #:[id number] Oral 0 / 600 380 / 380 Output: Urine 650 / 650 Other: Meal NPO - Labs 10/27/18 09:18 10/27/18 09:18 Diabetes panel 10/27/18 Range/Units 09:18 Sodium 137 (136-145) mEq/L Potassium 3.3 L (3.5-5.1) mEq/L Chloride 103 (98-107) mEq/L Carbon Dioxide 30 H (23-29) mEq/L BUN 24 H (6-20) mg/dL Creatinine 1.09 (0.70-1.30) mg/dL Glucose 125 H (70-105) mg/dL Calcium 8.3 L (8.6-10.3) mg/dL AST 40 H (13-39) Units/L ALT 37 (7-52) Units/L Alkaline Phosphatase 86 (34-104) Units/L Albumin 3.1 L (3.5-5.7) g/dL Calcium panel 10/27/18 Range/Units 09:18 Calcium 8.3 L (8.6-10.3) mg/dL Albumin 3.1 L (3.5-5.7) g/dL Pituitary panel 10/27/18 Range/Units 09:18 Sodium 137 (136-145) mEq/L Potassium 3.3 L (3.5-5.1) mEq/L Chloride 103 (98-107) mEq/L Carbon Dioxide 30 H (23-29) mEq/L BUN 24 H (6-20) mg/dL Creatinine 1.09 (0.70-1.30) mg/dL Glucose 125 H (70-105) mg/dL Calcium 8.3 L (8.6-10.3) mg/dL Adrenal panel 10/27/18 Range/Units 09:18 Sodium 137 (136-145) mEq/L Potassium 3.3 L (3.5-5.1) mEq/L Chloride 103 (98-107) mEq/L Carbon Dioxide 30 H (23-29) mEq/L BUN 24 H (6-20) mg/dL Creatinine 1.09 (0.70-1.30) mg/dL Glucose 125 H (70-105) mg/dL Calcium 8.3 L (8.6-10.3) mg/dL Total Bilirubin 2.6 H (0.3-1.0) mg/dL AST 40 H (13-39) Units/L ALT 37 (7-52) Units/L Alkaline Phosphatase 86 (34-104) Units/L Albumin 3.1 L (3.5-5.7) g/dL - Attending Attestation I examined this patient and my medical decision-making was reviewed with the Resident Physician. I agree with the documented findings, disposition and treatment plan as described except to the extent set forth below. The patient is seen and evaluated on morning rounds with the acute care surgery team and the resident. The patient has severe pancreatitis. The pancreatitis is resolving. Bilirubin was elevated yesterday and then back down today. Gastroenterology was consulted and they did not recommend ERCP. Plan on recovery from his pancreatitis with convalescent cholecystectomy. The patient has requested Dr. Jordyn Mazariegos MD FACS
[2018-10-27 09:39] LABS: Hematocrit 38.4 % (37.5-50.1); Hemoglobin 12.7 g/dL (12.9-16.9); Mean Corpuscular HGB Conc 33.1 g/dL (31.6-35.5); Mean Corpuscular Hemoglobin 29.3 pg (28.0-33.3); Mean Corpuscular Volume 88.7 fL (83.0-100.0); Mean Platelet Volume 10.2 fL (9.4-12.4); Platelet Count 188 K/mcL (140-400); Red Blood Count 4.33 M/mcL (4.19-5.50); Red Cell Distribution Width 14.1 % (11.5-14.5); White Blood Count 10.6 K/mcL (4.3-11.1)
--- NOTE | 2018-10-27 09:39 | Cardiology Consult Note ---
<Alma Delia Fierro - Last Filed: 10/27/18 09:43> Date of Encounter: 10/27/18 Time of Encounter: 09:00 Assessment and Plan (1) Pericardial effusion Current Visit: Yes Status: Acute Small pericardial effusion without tamponade on TTE. EF preserved. Patient admitted with acute pancreatitis, also with incidental finding of PNA. Recommend repeat limited echocardiogram in the outpatient setting in 4-6 weeks to re-evaluate effusion. Will coordinate appt. No further inpt testing recommended from CV standpoint. (2) CAD (coronary artery disease) Current Visit: Yes Status: Acute Hx of CAD s/p PCI to LAD and LCx in 2014. No chest pain or angina reported. Troponin negative. EF preserved per TTE. Continue asa, statin, and BB. Follow-up in the outpatient setting. Qualifiers: Coronary Disease-Associated Artery/Lesion type: [place] artery [place] vs. transplanted heart: [place] heart Associated angina: without angina Qualified Code(s): I25.10 - Atherosclerotic heart disease of [place] coronary artery without angina pectoris Discussion w patient/family: The assessment and plan as outlined above was discussed with the patient and/or family members who expressed understanding and agreement. All questions were answered. Thank you for involving us in the care of your patient. Please call with any questions. The patient will be discussed and reviewed with Dr. Fernández; changes to be made accordingly. History of Present Illness Consult date: 10/27/18 Requesting physician: Radha Conway Consult reason: Small pericardial effusion Chief complaint: Abdominal pain History of present illness: Mr. Parker is a 58 year old male with PMHx significant of CAD s/p PCI (LAD, LCx in 2014), HTN, HLD who presented to [facility] ED on 10/23/18 with complaints of epigastric discomfort. He was found to have acute pancreatitis and was transferred to [facility]. Additionally, he was found to have bilateral lower lobe PNA. Epigastric pain started after eating, pain/discomfort has been intermittent since admission. Plan for MRCP today and then outpatient lap rosibel. He denies chest pain/discomfort. No angina or dyspnea. TTE was obtained and demonstrated preserved LVEF with small pericardial effusion without tamponade which prompted Cardiology consult. Past Med Surg Social Fam HX - Past Medical History Medical history: hypertension, kidney stones, myocardial infarction Additional medical history: Gout Psychiatric history: no psych history - Past Surgical History Surgical History: other - Social History Smoking Status: Never smoker Smokeless Tobacco Status: No Alcohol use: none Drug use: none Medications and Allergies Lisinopril [Zestril] 20 mg PO DAILY 03/22/15 [History] Allopurinol [Zyloprim 100 MG] 100 mg PO HS 10/22/18 [History] Aspirin [Lo-Dose Aspirin EC] 81 mg PO DAILY 10/22/18 [History] Atorvastatin [Lipitor] 80 mg PO HS 10/22/18 [History] Tamsulosin HCl [Flomax] 0.4 mg PO DAILY 10/22/18 [History] hydroCHLOROthiazide [Hydrochlorothiazide] 25 mg PO DAILY 10/22/18 [History] Metoprolol Succinate [Toprol Xl] 50 mg PO DAILY 10/23/18 [History] 3 Allergy/AdvReac Type Severity Reaction Status Date / Time Penicillins Allergy Hives Verified 10/23/18 16:28 All Systems Review: The remainder of the systems were reviewed and are negative Physical Examination Vital Signs, Last 4 Hours Temp Pulse Resp BP Pulse Ox 10/27/18 07:31 99.8 F H 105 17 155/91 90 General: Conversant, No Apparent Distress HEENT: Atraumatic, Normocephaly, Mucus Membranes Moist Cardiac: Reg Rate and Rhythm, Normal S1 and S2 Lungs: Normal Breath Sounds Neuro: Alert and responsive Abdomen: Soft, Other (morbidly obese) Extremities: No Edema, Normal Pulses Results 10/27/18 09:18 10/26/18 09:13 Lab Results 10/26/18 10/26/18 09:13 09:13 WBC 10.1 Hgb 13.3 Hct 41.2 Plt Count 173 Sodium 138 Potassium 3.5 Chloride 100 Carbon Dioxide 30 H BUN 24 H Creatinine 1.09 Glucose 129 H Calcium 8.5 L Total Bilirubin 3.7 H AST 33 ALT 36 Alkaline Phosphatase 80 Active Medications Acetaminophen (Tylenol) 650 mg PO Q6HR PRN PRN Reason: mild pain/fever Stop: 04/26/19 10:37 Last Admin: 10/25/18 15:45 Dose: 650 mg Documented by: Allopurinol (Zyloprim) 100 mg PO DAILY [facility] Stop: 04/24/19 09:31 Last Admin: 10/26/18 09:14 Dose: 100 mg Documented by: Aspirin (Aspirin Ec) 81 mg PO DAILY [facility] Stop: 04/24/19 09:31 Last Admin: 10/26/18 09:14 Dose: 81 mg Documented by: Atorvastatin Calcium (Lipitor) 80 mg PO HS [facility] Stop: 04/24/19 21:01 Last Admin: 10/26/18 22:07 Dose: 80 mg Documented by: Docusate Sodium (Colace) 200 mg PO DAILY [facility]; Protocol Stop: 04/24/19 09:46 Last Admin: 10/26/18 09:14 Dose: 200 mg Documented by: Fentanyl Citrate (Fentanyl (Pf)) 100 mcg IVP Q3H PRN PRN Reason: See Comments Stop: 04/24/19 10:50 Last Admin: 10/26/18 22:07 Dose: 100 mcg Documented by: Heparin Sodium (Porcine) (Heparin) 5,000 unit SQ Q12HCO [facility] Stop: 04/24/19 06:01 Last Admin: 10/27/18 07:24 Dose: Not Given Documented by: Hydralazine HCl (Hydralazine) 10 mg IVP Q6HR PRN PRN Reason: Hypertension Stop: 04/24/19 19:57 Last Admin: 10/26/18 05:49 Dose: 10 mg Documented by: Sodium Chloride (0.9 % Sodium Chloride) 1,000 mls @ 125 mls/hr IVC .Q8H [facility] Stop: 04/28/19 09:07 Meropenem 1,000 mg/ Sodium (Chloride) 100 mls @ 200 mls/hr IVPB Q8HR [facility] Stop: 04/28/19 09:12 Lisinopril (Zestril) 20 mg PO DAILY [facility]; Protocol Stop: 04/24/19 09:31 Last Admin: 10/26/18 09:14 Dose: 20 mg Documented by: Metoprolol Succinate (Toprol Xl) 50 mg PO DAILY [facility] Stop: 04/24/19 10:01 Last Admin: 10/26/18 09:14 Dose: 50 mg Documented by: Naloxone HCl (Narcan) 0.4 mg IVP Q2MPRN PRN PRN Reason: SEE COMMENTS Stop: 04/24/19 00:34 Ondansetron HCl (Zofran) 4 mg IVP Q6H PRN; Protocol PRN Reason: Nausea And Vomiting Stop: 04/24/19 04:42 Last Admin: 10/23/18 05:43 Dose: 4 mg Documented by: Oxycodone HCl (Oxycodone Oral Conc) 15 mg SL Q4H PRN; Protocol PRN Reason: Severe Pain Stop: 04/24/19 00:34 Last Admin: 10/27/18 09:07 Dose: 15 mg Documented by: Senna (Senna) 17.2 mg PO HS PRN PRN Reason: Constipation Stop: 04/24/19 09:34 Tamsulosin HCl (Flomax) 0.4 mg PO HS [facility]; Protocol Stop: 04/24/19 21:01 Last Admin: 10/26/18 22:08 Dose: 0.4 mg Documented by: - Imaging and Cardiology Echo: report reviewed Other Results: pt. not on telemetry - EKG Interpretation EKG results cardiology: personally reviewed Consult Discharge Plan - Plan Referrals: NONE,PCP [Primary Care Provider] - <Efraín Fernández - Last Filed: 10/27/18 13:28> Date of Encounter: 10/27/18 - Attending Attestation Patient was seen and evaluated independently by me. Findings, assessment and plan were discussed at length with patient, questions answered. Agree with nurse practitioner's/resident's documentation. Addition as follows, 58 yoCM ho CAD SONIA-LAD and LCx 2014, HTN, HLD. P/w epigastric pain. Imp pancreatitis, PNA. Consulted for incidental pericardial effusion on TTE. No chest pain, palpitation, dyspnea. ECG no ischemic changes. TTE reviewed trace-small pericardial effusion w/o tamponade, mild TR, otherwise wnl. BP fluctuation, CTA B/L, RR, no LE edema. A: Pericardial effusion, trace-small CAD, no angina Acute pancreatitis P: no further inpatient cardiac workup Cardiology clinic f/u Efraín Fernández MD, PhD Assessment and Plan Discussion w patient/family: The assessment and plan as outlined above was discussed with the patient and/or family members who expressed understanding and agreement. All questions were answered. Thank you for involving us in the care of your patient. Please call with any questions. History of Present Illness History of present illness: Mr. Parker is a 58 year old male All Systems Review: The remainder of the systems were reviewed and are negative Physical Examination Vital Signs, Last 4 Hours Temp Pulse Resp BP Pulse Ox 10/27/18 11:10 98.1 F 109 17 168/90 94 Results 10/27/18 09:18 10/27/18 09:18 Lab Results 10/27/18 10/27/18 09:18 09:18 WBC 10.6 Hgb 12.7 L Hct 38.4 Plt Count 188 Sodium 137 Potassium 3.3 L Chloride 103 Carbon Dioxide 30 H BUN 24 H Creatinine 1.09 Glucose 125 H Calcium 8.3 L Total Bilirubin 2.6 H AST 40 H ALT 37 Alkaline Phosphatase 86 Lipase 152 H
[2018-10-27 09:52] LABS: BUN/Creatinine Ratio 22 (6-26); Blood Urea Nitrogen 24 mg/dL (6-20); Carbon Dioxide 30 mEq/L (23-29); Chloride 103 mEq/L (98-107); Potassium 3.3 mEq/L (3.5-5.1); Sodium 137 mEq/L (136-145)
[2018-10-27 09:53] LABS: Alanine Aminotransferase 37 Units/L (7-52); Albumin 3.1 g/dL (3.5-5.7); Albumin/Globulin Ratio 1.1 (1.1-2.2); Alkaline Phosphatase 86 Units/L (34-104); Aspartate Amino Transferase 40 Units/L (13-39); Bilirubin,Direct 1.5 mg/dL (0.0-0.2); Bilirubin,Indirect 1.1 mg/dL (0.0-1.2); Bilirubin,Total 2.6 mg/dL (0.3-1.0); Calcium 8.3 mg/dL (8.6-10.3); Globulin 2.7 g/dL (2.4-3.5); Glucose 125 mg/dL (70-105); Lipase 152 Units/L (11-82); Osmolality,Calculated 290 (280-300); Total Protein 5.8 g/dL (6.4-8.9); eGFR For African Americans > 60 (> 60); eGFR For Non-African Americans > 60 (> 60)
[2018-10-27] MEDS: Metoprolol XL (24 HR) Succ 50 MG TAB.ER.24H PO SCH (10:45)
[2018-10-27] MEDS: Aspirin Enteric Coated 81 MG Tablet PO SCH (10:54)
[2018-10-27] MEDS: Lisinopril 20 MG TABLET PO SCH (10:54)
[2018-10-27] MEDS: 0.9 % Sodium Chloride 1,000 ML IVC SCH (11:07)
--- NOTE | 2018-10-27 13:15 | Gastroenterology Consult Note ---
<Rajan Kelley - Last Filed: 10/27/18 13:26> Date of Encounter: 10/27/18 Time of Encounter: 10:15 - Assessment and plan (1) Pancreatitis Current Visit: Yes Status: Acute Assessment and plan: CT A/P with acute pancreatitis, hyperdence collection concerning for hemorrhagic pancreatitis. MRCP with gallbladder sludge without obvious gallstones, no intra or extrahepatic biliary dilatation, no choledocholithiasis, pancreatic edema with adjacent free fluid and inflammatory stranding, compatible with patient's known pancreatitis. BISAP score 2 Continue IV fluids, pain control, and anti-emetics. Slowly advance diet as tolerated. Recommend cholecystectomy with intraoperative cholangiogram. No indication for ERCP as no biliary dilation. On admission TB 0.7, AST 96, ALT 107. TB peaked at 3.7 on 10/26. Today TB 2.6, AST 40, and ALT 37. - Time Spent With Patient Total time spent is greater than 50% in coordination of care (as documented) at patient's floor/unit and/or counseling patient: GI History of Present Illness - Data of Consult Patient: new to practice Consult date: 10/27/18 Requesting Physician: Gamaliel Barnes MD - Consult Narrative Reason for consult: Gallstone pancreatitis History of present illness: Mr. Parker is a 58 year old male Past Med Surg Social Fam HX - Past Medical History Medical history: hypertension, kidney stones, myocardial infarction Additional medical history: Gout Psychiatric history: no psych history - Past Surgical History Surgical History: other - Social History Smoking Status: Never smoker Smokeless Tobacco Status: No Alcohol use: none Drug use: none - Gastrointestinal Gastrointestinal: Present: as per HPI - Constitutional Constitutional: as per HPI - EENT Eyes: as per HPI Ears: Present: as per HPI Nose, mouth and throat: Present: as per HPI - Cardiovascular Cardiovascular ROS: Present: as per HPI - Respiratory Respiratory IM: Present: as per HPI - Genitourinary Genitourinary: Absent: change in color, Urinary frequency - Neurological ROS Neurological GI: Present: as per HPI - Hematologic/Lymphatic Hematologic/Lymphatic pediatric: Present: as per HPI - Musculoskeletal Musculoskeletal ROS GI: Present: as per HPI - Integumentary Integumentary GI: Present: as per HPI - Psychiatric ROS Psychiatric GI: Present: as per HPI - Endocrine Endocrine IM: Present: as per HPI - Constitutional Vitals: Temp Pulse Resp BP Pulse Ox 98.1 F 109 17 168/90 94 10/27/18 11:10 10/27/18 11:10 10/27/18 11:10 10/27/18 11:10 10/27/18 11:10 General appearance: Present: cooperative, A&O X 3, no acute distress, answers questions appropriately - Head Head exam: Present: atraumatic, normocephalic - Eye Eye exam: Present: normal appearance, sclera anicteric - ENT ENT exam: Present: mucous membranes dry - Neck Neck exam general surgery: Present: normal inspection, trachea midline - Respiratory Respiratory exam: Present: CTAB. Absent: rales, rhonchi - Cardiovascular Cardiovascular exam: Present: RRR, +S1, +S2 - GI/Abdominal GI/Abdominal exam: Present: soft, tenderness (RUQ, epigastric, LUQ), no peritoneal signs. Absent: distended, firm, guarding Additional comments: obese - Rectal Rectal exam: Present: deferred - Extremities Exam Extremities exam: Present: warm - Neurological Exam Neurological exam: Present: no focal deficits - Psychiatric Psychiatric exam: Present: normal affect, normal mood - Skin Skin exam: Present: dry, intact, normal color, warm Results - Labs CBC & Chem 7: 10/27/18 09:18 10/27/18 09:18 Labs: Last Result 10/27/18 09:18 Calcium 8.3 L Entire Visit 10/27/18 10/27/18 09:18 09:18 Hgb 12.7 L Hct 38.4 Total Bilirubin 2.6 H AST 40 H ALT 37 Lipase 152 H - Impressions Impressions Echocardiogram 10/26/18 09:12 Impressions: LVEF 60%. Normal LV chamber size, wall thickness and function. Normal left ventricular diastolic function. Normal right ventricular structure and function. There is a small pericardial effusion present without echocardiographic evidence of tamponade Mild tricuspid regurgitation. Unable to estimate RVSP as subcostal images were not obtained. Left Ventricular Wall Motion: Rest Echo Findings All wall segments showed normal motion. Findings: Study Quality * Technically sub-optimal due to poor echocardiographic windows. ECG Findings * Sinus tachycardia. Left Ventricle * LVEF 60%. * Normal LV chamber size, wall thickness and function. * Normal left ventricular diastolic function. Right Ventricle * Normal right ventricular structure and function. Left Atrium * Normal left atrial size. Right Atrium * Normal right atrial size. Aortic Valve * Aortic valve not well visualized. * No aortic regurgitation. * No aortic stenosis. Mitral Valve * Normal mitral valve structure. * No mitral stenosis. * No mitral regurgitation. Tricuspid Valve * Tricuspid valve not well visualized. * No tricuspid stenosis. * No evidence of pulmonary hypertension. * Mild tricuspid regurgitation. Pulmonic Valve * Pulmonic valve is not well visualized. Aorta * Normally sized aortic root. Pericardium * There is a small pericardial effusion present without echocardiographic evidence of tamponade * There is no echocardiographic evidence of tamponade. Blood pressure at time of study was 146/84mmHg IVC * The IVC is not well evaluated. Pulmonary Artery * Pulmonary artery not well visualized. Abdomen MRI 10/26/18 10:42 IMPRESSION: 1. Motion limited. 2. Gallbladder sludge without obvious gallstones. No intra or extrahepatic biliary dilatation. No choledocholithiasis. 3. Pancreatic edema with adjacent free fluid and inflammatory stranding, compatible with patient's known pancreatitis. 4. Partial visualization of basilar opacities with small effusions. D/ / 10/26/2018 17:35:28 Erinn Castellanos MD / Kimmy Davies Interpreting Provider: Erinn Castellanos MD Consult Discharge Plan - Plan Referrals: Shadia Delcid PACKER FUSER [Advanced Practice Nurse] - 11/03/18 3:00 pm (you will receive a new pt packet in the mail be sure to fill it all out and bring what is listed.) NONE,PCP [Primary Care Provider] - <Mikey Blue - Last Filed: 10/27/18 18:03> Date of Encounter: 10/27/18 Time of Encounter: 14:00 - Time Spent With Patient Total time spent is greater than 50% in coordination of care (as documented) at patient's floor/unit and/or counseling patient: GI History of Present Illness - Data of Consult Requesting Physician: Gamaliel Barnes MD - Consult Narrative History of present illness: Mr. Parker is a 58 year old male - Constitutional Vitals: Temp Pulse Resp BP Pulse Ox 99.2 F 106 17 150/89 92 10/27/18 16:46 10/27/18 16:46 10/27/18 16:46 10/27/18 16:46 10/27/18 16:46 Results - Labs CBC & Chem 7: 10/27/18 09:18 10/27/18 09:18 Labs: Last Result 10/27/18 09:18 Calcium 8.3 L Entire Visit 10/27/18 10/27/18 09:18 09:18 Hgb 12.7 L Hct 38.4 Total Bilirubin 2.6 H AST 40 H ALT 37 Lipase 152 H - Impressions Impressions Abdomen MRI 10/26/18 10:42 IMPRESSION: 1. Motion limited. 2. Gallbladder sludge without obvious gallstones. No intra or extrahepatic biliary dilatation. No choledocholithiasis. 3. Pancreatic edema with adjacent free fluid and inflammatory stranding, compatible with patient's known pancreatitis. 4. Partial visualization of basilar opacities with small effusions. D/ : / 10/26/2018 17:35:28 Erinn Castellanos MD / Kimmy Davies Interpreting Provider: Erinn Castellanos MD - Attending Attestation I have personally performed a face to face evaluation on this patient. I have reviewed and agree with the care plan. History and Exam by me shows: Pt seen. No active complaint . examination : has mild tenderness in the left upper abdomen. A: Patient acute pancreatitis with peripancreatic fluid collection. No biliary dilation. Recommendation: Pain control IV fluid no need for an ERCP. Recommend IOC at the time gallbladder surgery when patient have it done as an outpatient
[2018-10-27] MEDS: Cefepime HCl 1,000 MG in Water for inj. (sterile) 20 ML 10 ML IVP SCH (15:49)
[2018-10-27] MEDS: MetroNIDAZOLE 500 MG/100 ML 500 MG/100 ML BAG IVPB SCH (15:49)
[2018-10-28] MEDS: Cefepime HCl 1,000 MG in Water for inj. (sterile) 20 ML 10 ML IVP SCH ×2 (00:13→08:25)
[2018-10-28] MEDS: MetroNIDAZOLE 500 MG/100 ML 500 MG/100 ML BAG IVPB SCH ×4 (00:15→23:29)
[2018-10-28] MEDS: 0.9 % Sodium Chloride 1,000 ML IVC SCH ×2 (00:17→05:43)
[2018-10-28] MEDS: OXYCODONE Oral CONC 10 MG/0.5 ML ORAL.SYG SL PRN (02:25)
[2018-10-28] MEDS: *HR* Heparin 5,000 UNIT/ML VIAL SQ SCH ×2 (05:55→15:57)
[2018-10-28 06:45] LABS: Basophils % 0.2 %; Eosinophils # 0.2 K/mcL (0.0-0.6); Eosinophils % 1.5 %; Hematocrit 38.8 % (37.5-50.1); Hemoglobin 12.3 g/dL (12.9-16.9); Immature Granulocytes % 1.3 % (0-4); Lymphocytes # 0.9 K/mcL (0.6-4.6); Lymphocytes % 7.9 %; Mean Corpuscular HGB Conc 31.7 g/dL (31.6-35.5); Mean Corpuscular Hemoglobin 28.5 pg (28.0-33.3); Mean Corpuscular Volume 89.8 fL (83.0-100.0); Monocytes # 1.1 K/mcL (0.0-1.3); Monocytes % 9.8 %; Neutrophils # 8.8 K/mcL (1.6-8.9); Platelet Count 198 K/mcL (140-400); Red Blood Count 4.32 M/mcL (4.19-5.50); Red Cell Distribution Width 14.3 % (11.5-14.5); Segmented Neutrophils % 79.3 %; White Blood Count 11.1 K/mcL (4.3-11.1)
[2018-10-28 07:10] LABS: Alanine Aminotransferase 33 Units/L (7-52); Alkaline Phosphatase 95 Units/L (34-104); Aspartate Amino Transferase 47 Units/L (13-39); BUN/Creatinine Ratio 19 (6-26); Bilirubin,Direct 0.8 mg/dL (0.0-0.2); Bilirubin,Total 1.8 mg/dL (0.3-1.0); Blood Urea Nitrogen 19 mg/dL (6-20); Calcium 8.3 mg/dL (8.6-10.3); Carbon Dioxide 27 mEq/L (23-29); Chloride 101 mEq/L (98-107); Globulin 2.9 g/dL (2.4-3.5); Glucose 101 mg/dL (70-105); Lipase 192 Units/L (11-82); Magnesium 2.4 mg/dL (1.6-2.6); Osmolality,Calculated 284 (280-300); Potassium 3.4 mEq/L (3.5-5.1); Sodium 136 mEq/L (136-145); Total Protein 5.9 g/dL (6.4-8.9); eGFR For African Americans > 60 (> 60); eGFR For Non-African Americans > 60 (> 60)
[2018-10-28] MEDS: Lisinopril 20 MG TABLET PO SCH (08:26)
[2018-10-28] MEDS: Metoprolol XL (24 HR) Succ 50 MG TAB.ER.24H PO SCH (08:26)
[2018-10-28] MEDS: Aspirin Enteric Coated 81 MG Tablet PO SCH (08:26)
--- NOTE | 2018-10-28 08:57 | Event Note ---
Date of Encounter: 10/28/18 Time of Encounter: 08:56 Bilirubin continues to be downtrending. Patient states his abdominal pressure is improved in pain is only soreness. He is requested to follow-up with Dr. Cobb. An appointment has been made for 11/25/2017 at 0920 patient should follow a low fat diet until seen in follow-up. If he has return of his previous symptoms or worsening discomfort he should return to the emergency department.
[2018-10-28] MEDS ORDERED: Ringers Solution, Lactated 1,000 ML IVC SCH (10:00)
[2018-10-28] MEDS ORDERED: traMADol 50 MG TABLET PO PRN ×2 (10:28→10:52)
--- NOTE | 2018-10-28 10:32 | Internal Med Progress Note ---
Hospitalist Progress Note - Encounter Date of Encounter: 10/28/18 Time of Encounter: 10:30 - Subjective Interval History: I have seen and evaluated the patient at bedside. patient reported the abdominal pain/discomfort has resolved. reports not feeling as bloated as her was for the past couple of days, denies nausea or vomiting. denies chest pain or abdominal pain. - Exam Vitals: Temp Pulse Resp BP Pulse Ox 98.3 F 107 17 168/88 95 10/28/18 07:51 10/28/18 07:51 10/28/18 07:51 10/28/18 07:51 10/28/18 07:51 Exam: Vitals: Reviewed General: Alert and oriented x4. In no distress Skin: Normal color, no rash, no lesions. HEENT: EOM, pupils equal, round and reactive. Cardiovascular: RRR, normal S1 & S2, no rubs, murmurs or gallops. Lungs: CTA b/l, no wheezes or crackles. Abdomen: Obese, soft, non-tender, no rigidity. Extremities: No edema. Neurological: Normal cognition and motor skills. Rest of the physical exam is non contributory - Assessment and Plan (1) Pancreatitis Current Visit: Yes Status: Acute Assessment and Plan: Resolving. reports the abdominal pain has resolved. denies nausea or vomiting. Plan will advance diet to full liquid continue LR @75 ml/hr x1 more bag discontinue fentanyl and oxyconde. tramadol added for pain control dc cefepime started on levofloxacin. continue metronidazole. surgery recommended outpatient f/u on 11/25/2018 at 0920 GI recommendations appreciated (2) Leukocytosis Current Visit: Yes Status: Resolved (3) Elevated bilirubin Current Visit: Yes Status: Resolved (4) HTN (hypertension) Current Visit: Yes Status: Chronic Assessment and Plan: BP sub-optimally controlled. possible due to IV fluids. IV fluids have been modified. continue lisinopril 20mg/PO and metoprolol 50/PO daily. (5) Pneumonia Current Visit: Yes Status: Acute Assessment and Plan: CT abd/pelvis Small bilateral pleural effusions. Patchy consolidation within the lower lungs bilaterally, concerning for pneumonia versus atelectasis. Plan patient on broad spectrum IV antibiotics incentive spirometry. (6) Pericardial effusion Current Visit: Yes Status: Chronic Assessment and Plan: cardiology consulted recommended outpatient follow up within 4-6 weeks of hospital discharge for a repeat TTE. (7) ERIN (acute kidney injury) Current Visit: Yes Status: Resolved (8) HLD (hyperlipidemia) Current Visit: Yes Status: Chronic Assessment and Plan: On atorvastatin 80 mg by mouth at bedtime. (9) Hypokalemia Current Visit: Yes Status: Acute Assessment and Plan: Electrolyte replaced. DVT Prophylaxis: patient is on heparin subq. - Summary of Assessment and Plan Summary of Assessment and Plan: patient to remain in the hospital due to resolving pancreatitis. will advance diet as tolerated. - Time Spent with Patient Total time spent is greater than 50% in coordination of care (as documented) at patient's floor/unit and/or counseling patient: Greater than 35 minutes (40) Plan of Care Discussed with: patient (his and the nurse.) Internal Medicine: Result - Labs CBC & Chem 7: 10/28/18 04:52 10/28/18 04:52 Labs: Short CBC 10/28/18 Range/Units 04:52 WBC 11.1 (4.3-11.1) K/mcL Hgb 12.3 L (12.9-16.9) g/dL Hct 38.8 (37.5-50.1) % Plt Count 198 (140-400) K/mcL Neutrophils # 8.8 (1.6-8.9) K/mcL BMP 10/28/18 04:52 Sodium 136 Potassium 3.4 L Chloride 101 Carbon Dioxide 27 BUN 19 Creatinine 0.99 Glucose 101 Calcium 8.3 L Liver Function 10/28/18 Range/Units 04:52 Total Bilirubin 1.8 H (0.3-1.0) mg/dL Direct Bilirubin 0.8 H (0.0-0.2) mg/dL AST 47 H (13-39) Units/L ALT 33 (7-52) Units/L Alkaline Phosphatase 95 (34-104) Units/L Albumin 3.0 L (3.5-5.7) g/dL Consult Discharge Plan - Plan Instructions: Cholecystitis (DC) Referrals: Rubens Cobb DO [Partnered Physician] - 11/25/18 9:20 am Shadia Delcid SR ACCOUNT EXECUTIVE [Advanced Practice Nurse] - 11/03/18 3:00 pm (you will receive a new pt packet in the mail be sure to fill it all out and bring what is listed.) NONE,PCP [Primary Care Provider] - (1) Pancreatitis Qualifiers: Chronicity: acute Pancreatitis type: biliary Acute pancreatitis complication: no infection or necrosis Qualified Code(s): K85.10 - Biliary acute pancreatitis without necrosis or infection (2) Leukocytosis Qualifiers: Leukocytosis type: unspecified Qualified Code(s): D72.829 - Elevated white blood cell count, unspecified (4) HTN (hypertension) Qualifiers: Hypertension type: unspecified Qualified Code(s): I10 - Essential (primary) hypertension (5) Pneumonia Qualifiers: Pneumonia type: due to unspecified organism Laterality: bilateral Lung location: lower lobe of lung Qualified Code(s): J18.1 - Lobar pneumonia, unspecified organism (8) HLD (hyperlipidemia) Qualifiers: Hyperlipidemia type: unspecified Qualified Code(s): E78.5 - Hyperlipidemia, unspecified
[2018-10-28] MEDS: Levofloxacin 750 MG/150 ML 750 MG/150 ML BAG IVPB SCH (11:34)
[2018-10-29] MEDS: *HR* Heparin 5,000 UNIT/ML VIAL SQ SCH (05:53)
[2018-10-29 08:28] LABS: Hematocrit 37.8 % (37.5-50.1); Hemoglobin 12.3 g/dL (12.9-16.9); Mean Corpuscular HGB Conc 32.5 g/dL (31.6-35.5); Mean Corpuscular Hemoglobin 28.3 pg (28.0-33.3); Mean Corpuscular Volume 87.1 fL (83.0-100.0); Mean Platelet Volume 10.2 fL (9.4-12.4); Platelet Count 203 K/mcL (140-400); Red Blood Count 4.34 M/mcL (4.19-5.50); Red Cell Distribution Width 13.8 % (11.5-14.5); White Blood Count 10.9 K/mcL (4.3-11.1)
[2018-10-29 08:48] LABS: Alanine Aminotransferase 34 Units/L (7-52); Albumin 2.7 g/dL (3.5-5.7); Albumin/Globulin Ratio 0.9 (1.1-2.2); Alkaline Phosphatase 95 Units/L (34-104); Aspartate Amino Transferase 54 Units/L (13-39); BUN/Creatinine Ratio 18 (6-26); Bilirubin,Total 1.3 mg/dL (0.3-1.0); Blood Urea Nitrogen 17 mg/dL (6-20); Calcium 8.4 mg/dL (8.6-10.3); Carbon Dioxide 30 mEq/L (23-29); Chloride 100 mEq/L (98-107); Glucose 126 mg/dL (70-105); Osmolality,Calculated 289 (280-300); Potassium 3.1 mEq/L (3.5-5.1); Sodium 138 mEq/L (136-145); Total Protein 5.7 g/dL (6.4-8.9); eGFR For African Americans > 60 (> 60); eGFR For Non-African Americans > 60 (> 60)
--- NOTE | 2018-10-29 08:49 | Discharge Summary ---
Orders not resulted at time of discharge: Pending orders 10/29/18 04:00 Lipase AM 0400 10/29/18 08:11 CMP [Comprehensive Metabolic Panel] AM 0400 10/30/18 04:00 CMP [Comprehensive Metabolic Panel] AM 0400 Complete Blood Count w/o Diff [HEME] AM 0400 Lipase AM 0400 Date of Encounter: 10/29/18 Time of Encounter: 08:46 - Discharge Diagnosis (1) Pancreatitis Priority: Primary Status: Resolved Qualifiers: Chronicity: acute Pancreatitis type: biliary Acute pancreatitis complication: no infection or necrosis Qualified Code(s): K85.10 - Biliary acute pancreatitis without necrosis or infection (2) Leukocytosis Priority: Secondary Status: Resolved Qualifiers: Leukocytosis type: unspecified Qualified Code(s): D72.829 - Elevated white blood cell count, unspecified (3) Elevated bilirubin Priority: Secondary Status: Resolved (4) HTN (hypertension) Priority: Secondary Status: Chronic Qualifiers: Hypertension type: unspecified Qualified Code(s): I10 - Essential (primary) hypertension (5) Pneumonia Priority: Secondary Status: Suspected Qualifiers: Pneumonia type: due to unspecified organism Laterality: bilateral Lung location: lower lobe of lung Qualified Code(s): J18.1 - Lobar pneumonia, unspe cified organism (6) Pericardial effusion Priority: Secondary Status: Chronic (7) ERIN (acute kidney injury) Priority: Secondary Status: Resolved (8) HLD (hyperlipidemia) Priority: Secondary Status: Chronic Qualifiers: Hyperlipidemia type: unspecified Qualified Code(s): E78.5 - Hyperlipidemia, unspecified (9) Hypokalemia Priority: Secondary Status: Acute Hospital course: Mr. Parker is a 58 year old male PMH hypertension, hyperlipidemia and coronary artery disease with stents who went to [place] emergency room after developing intense abdominal pain and distention right after dinner. Over there he was found to have a lipase greater than [address] scan findings correlating with acute uncomplicated pancreatitis. Patient was admitted to the hospital due to acute pancreatitis. Managed with IV pain medication, IV hydration and bowel rest. An abdominal MRI was done: Gallbladder sludge without obvious gallstones. No intra or extrahepatic biliary dilatation. No choledocholithiasis. Pancreatic edema with adjacent free fluid and inflammatory stranding, compatible with patient's known pancreatitis. GI consulted and recommended surgery evaluation. Surgeries was consulted, recommended outpatient follow-up for cholecystectomy. Due to concern of possible hemorrhagic pancreatitis, and findings on repeat CT abdomen and pelvis the patient was managed with a short course of IV broad-spectrum antibiotics. TTE was done and patient was found to have an a small pericardial effusion, cardiology evaluated the patient recommended repeat TTE in 4-6 weeks. Patient acute symptoms on presentation resolved, he is tolerating oral diet well, afebrile and hemodynamically stable. Patient will be discharged home, recommended to follow- up with surgery as scheduled. - Time Spent with Patient Total time spent providing and/or coordinating discharge services: Time spent: Greater than 30 minutes (35) - Discharge Medications Prescriptions: New metroNIDAZOLE [Flagyl] 500 mg PO TID 3 Days #9 tablet levoFLOXacin [Levaquin] 750 mg PO DAILY 3 Days #3 tablet Continued Metoprolol Succinate [Toprol Xl] 50 mg PO DAILY Lisinopril [Zestril] 20 mg PO DAILY Tamsulosin HCl [Flomax] 0.4 mg PO DAILY hydroCHLOROthiazide [Hydrochlorothiazide] 25 mg PO DAILY Atorvastatin [Lipitor] 80 mg PO HS Aspirin [Lo-Dose Aspirin EC] 81 mg PO DAILY Allopurinol [Zyloprim 100 MG] 100 mg PO HS Home Medications: Lisinopril [Zestril] 20 mg PO DAILY 03/22/15 [History] Allopurinol [Zyloprim 100 MG] 100 mg PO HS 10/22/18 [History] Aspirin [Lo-Dose Aspirin EC] 81 mg PO DAILY 10/22/18 [History] Atorvastatin [Lipitor] 80 mg PO HS 10/22/18 [History] Tamsulosin HCl [Flomax] 0.4 mg PO DAILY 10/22/18 [History] hydroCHLOROthiazide [Hydrochlorothiazide] 25 mg PO DAILY 10/22/18 [History] Metoprolol Succinate [Toprol Xl] 50 mg PO DAILY 10/23/18 [History] levoFLOXacin [Levaquin] 750 mg PO DAILY 3 Days #3 tablet 10/29/18 [Rx] metroNIDAZOLE [Flagyl] 500 mg PO TID 3 Days #9 tablet 10/29/18 [Rx] Allergies/Adverse Reactions: Allergy/AdvReac Type Severity Reaction Status Date / Time Penicillins Allergy Hives Verified 10/23/18 16:28 Date of admission: 10/23/18 00:10 Primary care physician: PCP NONE Consults: 10/25/18 18:48 Consult to Surgery [CONS] Routine Consulting Provider: Cabrera Pascual Reason for Consult: Pancreatitis Time Notified: 18:49 Call Completed: Yes 10/26/18 16:50 Consult to Cardiology [CONS] Routine Comment: Consulting Provider: Cardiology Withams Reason for Consult: pericardial effusion Call Completed: Yes 10/27/18 08:58 Consult to Gastroenterology [CONS] Stat Consulting Provider: Gastroenterology With[facility] Reason for Consult: gall-stone pancreatitis, need ERCP per surgery Call Completed: Yes - Constitutional Vitals: Temp Pulse Resp BP Pulse Ox 99.0 F 99 18 162/96 94 10/29/18 07:19 10/29/18 07:19 10/29/18 07:19 10/29/18 07:19 10/29/18 07:19 Exam: Vitals: Reviewed General: Alert and oriented x4. In no distress Cardiovascular: RRR, normal S1 & S2, no rubs, murmurs or gallops. Lungs: CTA b/l, no wheezes or crackles. Abdomen: Obese, soft, non-tender, no rigidity. NABS in all 4 quadrants. Extremities: No edema. Neurological: No focal neurological abnormality. Rest of the physical exam is non contributory - Patient Status Disposition: Home, Self-Care Condition: Good Functional capacity at discharge: independent ambulation Overall status at discharge: patient is back to baseline - Discharge Instructions Instructions: Cholecystitis (DC) Follow Up With: Rubens Cobb DO [Partnered Physician] - 11/25/18 9:20 am Shadia Delcid LEAD VULCANIZING OPERATOR [Advanced Practice Nurse] - 11/03/18 3:00 pm (you will receive a new pt packet in the mail be sure to fill it all out and bring what is listed.) NONE,PCP [Primary Care Provider] - - Diet and Activity Activity: resume usual activities as tolerated Diet: low fat, low cholesterol
[2018-10-29] MEDS: MetroNIDAZOLE 500 MG/100 ML 500 MG/100 ML BAG IVPB SCH (09:00)
[2018-10-29] MEDS: Metoprolol XL (24 HR) Succ 50 MG TAB.ER.24H PO SCH (09:11)
[2018-10-29] MEDS: Aspirin Enteric Coated 81 MG Tablet PO SCH (09:11)
[2018-10-29] MEDS: Lisinopril 20 MG TABLET PO SCH (09:12)
[2018-10-29] MEDS: Levofloxacin 750 MG/150 ML 750 MG/150 ML BAG IVPB SCH (11:44)
[2018-10-29] MEDS ORDERED: amLODIPine 5 MG TABLET PO SCH (14:30)
[2018-10-29] MEDS ORDERED: metroNIDAZOLE 500 MG TABLET PO SCH (15:00)
[2018-10-29 18:04] VITALS: BP 163/96
[2018-10-30] MEDS ORDERED: levoFLOXacin 750 MG TABLET PO SCH (09:00)
== END 2018-10-29 18:04 | disposition home or self-care (01) | DRG 438 ==
LOC: 2ANU → SUATTDRO 00:10 → OBSVTOIN 00:10
PROVIDERS: ADMIT Internal Medicine; ATTEND Internal Medicine